=== PATIENT | female | born 1960 | race Caucasian/White ===

== ENCOUNTER → 2020-06-21 | Outpatient (CLI) | payer BC, OTHER ==
[~2020-06-21] MED LIST: FISH OIL 1,0001 EAC9 PO; MOVE FREE JOIN1 EACH PO; MULTI VITAMIN1 EACH PO; PEPCID AC20 MG PO; TUMS200 MG PO
== END ==
LOC: LAB 07:48
PROVIDERS: ATTEND Orthopaedic Surgery
DX: Z01.812 Encounter for preprocedural laboratory examination (principal); Z20.822 Contact with and (suspected) exposure to COVID-19

== ENCOUNTER 2020-06-27 06:08 | Observation (INO) | payer BC, OTHER ==
[2020-06-21 14:30] LABS: HEMATOCRIT 40.5 % (37.0-47.0); HEMOGLOBIN 13.3 gm/dL (12.0-15.0); MCH 31.2 pg (26.0-34.0); MCHC 32.9 g/dL (28.0-37.0); MCV 95.1 fL (80.0-100.0); RBC 4.26 mil/uL (4.20-5.00); RDW 12.5 % (10.5-14.5)
[2020-06-21 14:36] LABS: URINE BILIRUBIN NEGATIVE (Negative); URINE BLOOD NEGATIVE (Negative); URINE CLARITY CLEAR; URINE COLOR YELLOW; URINE GLUCOSE-RANDOM* NEGATIVE (Negative); URINE KETONES NEGATIVE (Negative); URINE LEUKOCYTES-REFLEX NEGATIVE (Negative); URINE NITRITE-REFLEX NEGATIVE (Negative); URINE PROTEIN (DIPSTICK) NEGATIVE (Negative); URINE UROBILINOGEN 0.2 E.U./dl (0.2-1.0)
[2020-06-21 14:37] LABS: ALBUMIN 4.2 g/dL (3.4-5.0); CALCIUM 9.2 mg/dL (8.5-10.1); CREATININE 0.7 mg/dL (0.6-1.0); POTASSIUM 4.1 mmol/L (3.5-5.1)
[2020-06-21 14:54] LABS: INR 1.1; PROTIME 11.9 Seconds (9.3-11.4)
--- NOTE | 2020-06-24 08:02 | EKG ---
[address] [address] ELECTROCARDIOGRAM REPORT Name: BRYSON VOSS Room #: [facility]..#: [id number] Admission: Attend Phys: Carl Devi MD Discharge: Date of : 56 Report #: [id number] [facility] ED Test Date: 2020-06-21 Test Time: 14:21:19 Pat Name: BRYSON VOSS Department: Room: Gender: F [employer] Supervisor: Nikos NICKERSON : 1960 Requested By: Carl Devi Order Number: [id number] MD: Juanjo Reese Measurements Intervals Bells Rate: 65 P: 43 MD: 154 QRS: 64 QRSD: 100 T: 43 QT: 423 QTc: 440 Interpretive Statements Sinus rhythm No previous ECG available for comparison Electronically Signed On 06-24-2020 8:02:13 [employer]ERCIAL [employer] by Juanjo Reese [email or web address] <ELECTRONICALLY SIGNED> By: Juanjo Reese MD 06/24/20 0802 1421 1421 Juanjo Reese MD /EPI
[~2020-06-27] VITALS: Ht 167.6 cm; Wt 71.7 kg
[2020-06-27 07:40] VITALS: BP 122/81
[2020-06-27 12:03] VITALS: BP 98/67
[2020-06-27 12:57] VITALS: BP 95/62
--- NOTE | 2020-06-27 14:01 | O ---
[facility] [address] [place] [address] OPERATIVE REPORT Name: BRYSON VOSS Room #: 447-P [facility] Alaina Beyer#: [id number] Admission: 06/27/20 Attend Phys: Carl Devi MD Discharge: Date of : 56 Report #: [id number] THIS REPORT FOR: cc: BENSON BEASLEY, BENSON Hassan,Carl Luo MD ~ DATE OF SERVICE: 06/27/2020 PREOPERATIVE DIAGNOSIS: Bilateral knee osteoarthritis. POSTOPERATIVE DIAGNOSIS: Bilateral knee osteoarthritis. PROCEDURE: Bilateral total knee arthroplasty using Navio robotic assistance. SURGEON: Carl Devi MD. BRANCH MANAGER: Chelle Farley PA-C. INDICATIONS FOR BRANCH MANAGER: Throughout the case, extensive retraction and manipulation of the knees was required. This was afforded to me by my banking assistant. ANESTHESIA: General with adductor canal block. IMPLANTS: For the right knee [employer] size 5 Journey II BCS Oxinium femur, size 4 tibia, size 11 constrained polyethylene and size 35 patella for the left, [employer] size 6 Journey II BCS Oxinium femur, size 4 tibia, size 10 constrained polyethylene size 35 patella. TOURNIQUET TIME: 51 minutes for the right and 50 minutes for the left. ESTIMATED BLOOD LOSS: 50 mL. COMPLICATIONS: None. SPECIMENS: None. CONDITION UPON LEAVING THE OPERATING ROOM: Stable. INDICATIONS FOR PROCEDURE: The patient is a 60-year-old female with bilateral knee osteoarthritis. She had failed conservative treatment for this and after discussion with her, she elected for bilateral total knee arthroplasty. DESCRIPTION OF PROCEDURE: Risks, benefits, alternatives, and complications were discussed in detail with the patient including but not limited to risk of [facility] [address] [place] [address] OPERATIVE REPORT Name: BRYSON VOSS Room #: 447-P [facility] Alaina Beyer#: [id number] Admission: 06/27/20 Attend Phys: Carl Devi MD Discharge: Date of : 56 Report #: [id number] anesthesia, risk of damage to nerves, arteries, blood vessels, risk for infection, bleeding, risk for continued knee pain, need for reoperation. Informed consent was obtained from the patient. Bilateral knees were appropriately marked in the preoperative holding area. Adductor canal blocks were placed by Anesthesia. She was brought to the operating room and placed in the supine position on the operating room table. LMA anesthesia was induced without complication. Tourniquets were placed on bilateral lower extremities. IV Ancef was given for preoperative antibiotics. Bilateral lower extremities were prepped and draped in normal sterile fashion. Timeout was performed properly identifying the patient and procedure as well as the instrumentation and implants. All in the operating room were in agreement. Following dictation applies to bilateral knees. Lower extremity was then exsanguinated, tourniquet was inflated. Tourniquet time again was 51 minutes for the right and 50 minutes for the left. Standard midline approach to knee was made with 10 blade through the skin. Dissection was taken down sharply to the fascia and deep flaps were developed medially and laterally. Fresh 10 blade was used to make a medial parapatellar arthrotomy and the knee was inspected. There was severe patellofemoral osteoarthritis with moderate to severe medial and lateral compartment osteoarthritis. ACL and PCL were removed sharply. Reference pins were placed in the femur and the tibia. The knee was then digitally mapped using the [employer] VISION robotic system. Intraoperative plan was made and we sized the size 5 femur on the right, a size 6 femur on the left, size 4 tibia with 10 spacer. After acceptance of the intraoperative plan, distal femoral cut was made with a Navio bur. Distal femoral cutting block was pinned in place and chamfer cuts were made. Attention was then turned to the tibia. Remainder of the menisci removed with Bovie cautery. Tibial resection guide was pinned in place and tibial resection was made. Flexion and extension gaps were then checked and found to have good balance in flexion and extension both medially and laterally. Tibia was sized, found to be a size 4. Size 4 tibial trial was placed, pinned and punched. Size 5 femoral trial was used on the right. A size 6 femoral trial was used on the left and the box cut was made. This was then trialed with a size 10 polyethylene, the 10 polyethylene fit best for the left knee and the 11 for the right knee. Both knees demonstrated slight laxity in deep flexion laterally. It was felt we could make up for this with constrained implant, 9 mm of bone was resected from the posterior surface of the patella, a size 35 patellar trial button was placed. Knee was taken through range of motion, found to be stable, found to have good patellar tracking. Trial components were removed. Bony ends were thoroughly irrigated with normal saline. A final size 4 tibia, size 6 Journey II BCS Oxinium femur for the left and a size 5 Journey II BCS Oxinium femur for the right were cemented in place using standard cementation techniques. While the cement cured, periarticular injection consisting of morphine, ropivacaine, epinephrine and Toradol was placed around the knee joint capsule. After the cement had cured, tourniquets were deflated. Hemostasis obtained with Bovie cautery. Final size 10 constrained polyethylene was placed on the left. A size 11 constrained was [address] [address] OPERATIVE REPORT Name: BRYSON VOSS Room #: 447-P [facility] Alaina Beyer#: [id number] Admission: 06/27/20 Attend Phys: Carl Devi MD Discharge: Date of : 56 Report #: [id number] placed on the right. A gram of vancomycin was placed deep in the joint. Fascia was closed with 0 Vicryl, skin was closed with 2-0 Vicryl, 3-0 Monocryl. Dermabond and SUNITHA dressings were applied. The patient tolerated this procedure well and went to recovery room under care of anesthesia postoperatively. <ELECTRONICALLY SIGNED> By: Carl Devi MD 06/27/20 1401 1050 1102 Carl Devi MD /nt
[2020-06-27 15:30] VITALS: BP 110/71
[2020-06-27 17:35] VITALS: BP 183/83
[2020-06-27 19:38] VITALS: BP 108/71
[2020-06-28 05:12] VITALS: BP 103/68
[2020-06-28 06:28] LABS: HEMATOCRIT 29.2 % (37.0-47.0); HEMOGLOBIN 9.6 gm/dL (12.0-15.0); MCH 31.9 pg (26.0-34.0); MCHC 33.1 g/dL (28.0-37.0); MCV 96.4 fL (80.0-100.0); RBC 3.02 mil/uL (4.20-5.00); WBC 7.1 thou/uL (4.0-11.0)
[2020-06-28 08:25] VITALS: BP 95/62
[2020-06-28 13:56] VITALS: BP 95/62
[2020-06-28 16:59] VITALS: BP 118/76
[2020-06-28 20:58] VITALS: BP 123/82
[2020-06-29 03:40] VITALS: BP 111/77
[2020-06-29 04:29] LABS: HEMATOCRIT 30.5 % (37.0-47.0); MCHC 32.9 g/dL (28.0-37.0); MCV 97.1 fL (80.0-100.0); RBC 3.14 mil/uL (4.20-5.00); RDW 13.1 % (10.5-14.5)
[2020-06-29 07:52] VITALS: BP 114/54
[2020-06-29 12:39] VITALS: BP 95/62
== END 2020-06-29 14:16 | disposition home or self-care (01) ==
LOC: OR 06:08 → TBA 06:09 → OR 08:50 → 4S 11:55 → OR 12:32 → 4S 06-29 14:16
PROVIDERS: ADMIT Orthopaedic Surgery; ATTEND Orthopaedic Surgery
DX: M17.0 Bilateral primary osteoarthritis of knee (principal)
CPT/HCPCS: 50010; 50101; 50415; 50915; 50954; 51130; 51225; 51320; 53000; 53078; 53365; 54118; 56527; 56528; 57095; 57103; 57110; 57127; 57180; 62110; 62900; 70005